=== PATIENT | male | born 1955 | race Caucasian/White ===

== ENCOUNTER 2023-02-12 09:48 | Outpatient (CLI) | payer MEDICARE, SELFPAY ==
--- NOTE | ~2023-02-12 | XR_ITS ---
Right Knee Technique: AP, lateral, and oblique views were obtained. Clinical History: Pain Findings: No fracture or dislocation is seen. Osseous alignment is anatomic. Joint spaces are preserv ed without degenerative or erosive change. Soft tissues are unremarkable. No joint effusion is seen. Impression: Unremarkable right knee radiographs. Reviewed, dictated and finalized at location . Impression: Unremarkable right knee radiographs.
== END 2023-02-12 09:49 | disposition home or self-care (01) ==
PROVIDERS: PCP Family Medicine; Visit Provider Physician Assistant
DX: M25.561 Pain in right knee (principal)
CPT/HCPCS: 73562

== ENCOUNTER 2023-05-15 09:48 | Emergency (ER) | payer MEDICARE, SELFPAY ==
[2023-05-15 09:57] VITALS: BP 157/95; PULSE 104; RESP 16; TEMP 36.4; O2SAT 100
[2023-05-15 10:01] VITALS: BP 157/95; PULSE 104; RESP 16; TEMP 36.4; O2SAT 100
--- NOTE | 2023-05-15 10:05 | ED.EXTPRO ---
HPI - Extremity Problem General Chief complaint: Extremity Problem,Nontraumatic Stated complaint: Knee Swollen Time Seen by Provider: 05/15/23 10:05 Source: patient, RN notes reviewed and old records reviewed Mode of arrival: ambulatory Limitations: no limitations History of Present Illness HPI Narrative: 67-year-old presents to the [facility] with complaints knee pain and swelling. Patient has had intermittent knee pain and swelling since at least January of this year. Has seen primary care provider. Was referred to Orthopedics, states he has an appointment at the end of May. Today comes in asking if there was anything else he can do for the swollen knee beside following up with orthopedist. Has been taking Tylenol, Has been using Biofreeze, as well as icing the area. Patient denies any trauma. No bruising, cellulitic changes noted. Last x-ray January 2023 with no acute findings Related Data Allergies Allergy/AdvReac Type Severity Reaction Status Date / Time No Known Allergies Allergy Verified 05/15/23 10:00 Review of Systems Review of Systems: All systems reviewed & are unremarkable except as noted in HPI and below Constitutional: Constitutional: Reports no additional constitutional complaints Eyes: Eyes: Reports no additional eye complaints ENT: Reports system reviewed and no additional complaints, except as documented Cardiovascular: Cardiovascular: Reports no additional cardiovascular complaints, Denies chest pain and Denies dyspnea Respiratory: Respiratory: Reports no additional respiratory complaints, Denies chest congestion, Denies cough and Denies dyspnea Gastrointestinal: Gastrointestinal: Reports no additional gastrointestinal complaints, Denies abdominal pain, Denies nausea and Denies vomiting Musculoskeletal: Musculoskeletal: Reports as per HPI, Reports arthralgias and Reports joint swelling Integumentary/Breasts: Skin/Breast: Reports system reviewed and no additional complaints, except as docu Neurologic: Reports system reviewed and no additional complaints, except as documented Psychiatric: Psychiatric: Reports no additional psychiatric complaints Allergic/Immunologic: Allergic/Immunologic: Reports no additional allergic/immunologic complaints PMFSH Past Medical History Medical History Benign essential HTN Establishing care with new doctor, encounter for Lipid screening Mixed hyperlipidemia Pre-employment examination Screening for measles White coat syndrome with diagnosis of hypertension Family History Family History Mother Transfusion reaction Father , natural causes at 95 No problems noted. Other Heart disease Hypertension Social History Social History Social History: Smoking status: Never smoker Second hand tobacco smoke exposure: No Alcohol intake: never Substance use: never Substance use type: does not use Lack of Transportation: No Lack of Food: Never True Current Housing: I Have Housing Concerned About Future Housing: No Difficulty Paying Gas/Electric Bills: No Difficulty Paying for Meds: No Currently Unemployed: No Education: Decline to Answer Difficulty w/ Childcare or Family Care: No Living arrangements: with family Occupation/Education: occupation Gender identity (if verbalized by the patient): Male Sexual Orientation (if Verbalized by the Patient): Straight or Heterosexual Comments At the time of my signature, I reviewed and agree with the nursing past medical, surgical, social, and family history. There is no relevant family history pertinent to the patient complaint. Exam Const: General: cooperative, healthy appearing, comfortable, no acute distress, well developed, alert and well nourished Nutritional Appearance: well nourished a
== END 2023-05-15 10:27 | disposition home or self-care (01) ==
PROVIDERS: Emergency Provider Nurse Practitioner; PCP Family Medicine
DX: M25.561 Pain in right knee (principal); M79.89 Other specified soft tissue disorders; I10 Essential (primary) hypertension; E78.2 Mixed hyperlipidemia
CPT/HCPCS: 99212; G0463

== ENCOUNTER 2023-06-30 01:24 | Day surgery (SDC) | payer MEDICARE, SELFPAY ==
[2023-06-17 10:46] VITALS: BMI 28.5
--- NOTE | 2023-06-28 09:37 | SUR.PREOP ---
Patient called regarding upcoming procedure. Message left on pt's voicemail regarding preop instructions, appointment times, and procedure prep.
[2023-06-30 06:14] VITALS: BP 170/95; PULSE 82; RESP 18; TEMP 36.2; O2SAT 100; BMI 38.0
[2023-06-30] MEDS: LACTATED RINGERS 1,000 ML 150 ML IV CONT (06:35)
--- NOTE | 2023-06-30 07:23 | PM.HPGS ---
History of Present Illness History of Present Illness Consent: Risks, benefits, and alternatives have been discussed and questions answered. Patient agrees to proceed with procedure. Chief complaint: Neoplasm Screening Narrative: Puneet Mendez is a 67 year old male here for first screening colonoscopy Review of Systems Constitutional: Constitutional: Denies headache(s) and Denies weakness Eyes: Eyes: Denies blurry vision ENT: Reports Normal hearing present, Denies headache(s) and Denies neck pain Cardiovascular: Cardiovascular: Denies chest pain and Denies dyspnea Respiratory: Respiratory: Denies dyspnea Gastrointestinal: Gastrointestinal: Reports no additional gastrointestinal complaints Genitourinary: Genitourinary: Denies dysuria Musculoskeletal: Musculoskeletal: Denies neck pain Integumentary/Breasts: Skin/Breast: Denies dry skin Neurologic: Reports Normal hearing present, Denies headache(s) and Denies weakness Psychiatric: Psychiatric: Denies anxiety Endocrine: Endocrine: Denies change in body appearance Hematologic/Lymphatic: Hematologic/Lymphatic: Denies easy bleeding Allergic/Immunologic: Allergic/Immunologic: Denies urticaria [facility] Past Medical History Medical History (Updated 06/14/23 @ 14:06 by JULIÁN Cox) Benign essential HTN Degenerative joint disease of knee Establishing care with new doctor, encounter for Left knee pain Lipid screening Mixed hyperlipidemia Pre-employment examination Right knee pain Screening for measles White coat syndrome with diagnosis of hypertension Family History Family History Mother Transfusion reaction Father , natural causes at 95 No problems noted. Other Heart disease Hypertension Social History Social History Social History: Smoking status: Never smoker Second hand tobacco smoke exposure: No Alcohol intake: current Alcohol use details: occasional Substance use: never Substance use type: does not use Lack of Transportation: No Lack of Food: Never True Current Housing: I Have Housing Concerned About Future Housing: No Difficulty Paying Gas/Electric Bills: No Difficulty Paying for Meds: No Currently Unemployed: No Education: Decline to Answer Difficulty w/ Childcare or Family Care: No Living arrangements: with family Occupation/Education: occupation Gender identity (if verbalized by the patient): Male Sexual Orientation (if Verbalized by the Patient): Straight or Heterosexual Spiritual care concerns: No Meds Home Medications and Allergies Home Medications Medication Instructions Recorded Confirmed Type metoprolol tartrate 100 1 tablet PO DAILY #30 tabs 02/15/23 06/17/23 Rx mg-hydrochlorothiazide 25 mg tablet atorvastatin 20 mg tablet 20 mg PO QHS #30 tabs 06/07/23 06/17/23 Rx lisinopril 20 mg tablet See Rx Instructions .Route 06/15/23 06/17/23 Rx .COMPLEX #90 tabs Allergies Allergy/AdvReac Type Severity Reaction Status Date / Time No Known Allergies Allergy Verified 06/17/23 10:54 Vital Signs Vital Signs - 24 hr 06/30/23 06:14 Temperature 97.2 F L Pulse Rate 82 Respiratory Rate 18 Blood Pressure 170/95 H Pulse Oximetry 100 Oxygen Delivery Room Air Exam Const: General: comfortable and no acute distress HENMT: Face/Nose/Sinus: Normal nares present Eyes: General: appearance normal, both eyes and all related structures Neck: Neck: no JVD Resp: Auscultation: clear to auscultation bilaterally Cardio: Rate: regular rate Rhythm: regular rhythm GI: Inspection: non-distended GI Palp: Yes Soft to palpation Skin: General skin exam: normal color Neuro: General: gait normal Speech: normal speech Extrem: General: normal to inspection Psych: Mental Status: mental status grossly normal Assessment and Plan
--- NOTE | 2023-06-30 07:27 | WPDANESEPPF ---
Anes - Initial Pre Proc Eval Procedure: Operation Date: 06/30/23 07:30 Proposed Procedures p Screening Colonoscopy - Luis Miguel Olmedo MD Date/Time: 06/30/23 07:27 Surgeon: Luis Miguel Olmedo MD Pre Op Diagnosis: Neoplasm Screening Patient Data Age: 67 Gender: M Height: 1.83 m Weight: 127.2 kg Last Vital Signs Temp 97.2 F L 06/30/23 06:14 Pulse 82 06/30/23 06:14 Resp 18 06/30/23 06:14 BP 170/95 H 06/30/23 06:14 Pulse Ox 100 06/30/23 06:14 O2 Del Method Room Air 06/30/23 06:14 Allergies Allergy/AdvReac Type Severity Reaction Status Date / Time No Known Allergies Allergy Verified 06/17/23 10:54 Home Medications Medication Instructions Recorded Confirmed Type metoprolol tartrate 100 1 tablet PO DAILY #30 tabs 02/15/23 06/17/23 Rx mg-hydrochlorothiazide 25 mg tablet atorvastatin 20 mg tablet 20 mg PO QHS #30 tabs 06/07/23 06/17/23 Rx lisinopril 20 mg tablet See Rx Instructions .Route 06/15/23 06/17/23 Rx .COMPLEX #90 tabs Patient hx anesthesia problems: none Family hx anesthesia problems: none Results Review: All pre-operative results and documents have been reviewed as part of the pre-operative evaluation. [facility] Past Medical History Medical History (Updated 06/14/23 @ 14:06 by JULIÁN Cox) Benign essential HTN Degenerative joint disease of knee Establishing care with new doctor, encounter for Left knee pain Lipid screening Mixed hyperlipidemia Pre-employment examination Right knee pain Screening for measles White coat syndrome with diagnosis of hypertension Family History Family History Mother Transfusion reaction Father , natural causes at 95 No problems noted. Other Heart disease Hypertension Social History Social History Social History: Smoking status: Never smoker Second hand tobacco smoke exposure: No Alcohol intake: current Alcohol use details: occasional Substance use: never Substance use type: does not use Lack of Transportation: No Lack of Food: Never True Current Housing: I Have Housing Concerned About Future Housing: No Difficulty Paying Gas/Electric Bills: No Difficulty Paying for Meds: No Currently Unemployed: No Education: Decline to Answer Difficulty w/ Childcare or Family Care: No Living arrangements: with family Occupation/Education: occupation Gender identity (if verbalized by the patient): Male Sexual Orientation (if Verbalized by the Patient): Straight or Heterosexual Spiritual care concerns: No Anes - Eval Final PreProcedure Day of Procedure 06/30/23 07:27 Patient weight: obese Heart: regular rate and rhythm Lungs: clear to auscultation Airway: Mallampati scale class II Neurological: alert and oriented Last oral intake: >/= 8 hours ASA classification: III Emergent: no Anesthetic plan: proceed Anesthesia type and monitoring: general GIVS and standard monitoring Results Review: All pre-operative results and documents have been reviewed as part of the pre-operative evaluation. Informed Consent: The patient's anesthetic plan and its attendant risks and benefits were discussed with the patient/family/POA. Questions were solicited and answers provided to the satisfaction of the patient/family/POA.
[2023-06-30 07:50] VITALS: BP 119/72; PULSE 64; RESP 19; O2SAT 95
[2023-06-30 08:00] VITALS: BP 125/82; PULSE 76; RESP 18; O2SAT 100
[2023-06-30 08:10] VITALS: BP 147/88; PULSE 68; RESP 20; O2SAT 100
== END 2023-06-30 08:26 | disposition home or self-care (01) ==
PROVIDERS: PCP Family Medicine; Visit Provider Internal Medicine Gastroenterology
PROC: 0DJD8ZZ Inspection of Lower Intestinal Tract, Via Natural or Artificial Opening Endoscopic (ICD-10-PCS; CPT 45378; principal; 2023-06-30 07:30)
DX: Z12.11 Encounter for screening for malignant neoplasm of colon (principal); K63.5 Polyp of colon; K57.30 Diverticulosis of large intestine without perforation or abscess without bleeding; I10 Essential (primary) hypertension; E78.2 Mixed hyperlipidemia; E66.9 Obesity, unspecified; Z68.38 Body mass index [BMI] 38.0-38.9, adult
CPT/HCPCS: 45385; 88305; J2704; J7120

== ENCOUNTER 2023-09-30 09:58 | Outpatient (CLI) | payer MEDICARE, SELFPAY ==
[2023-09-30 11:35] LABS: Basophils Percent Auto 0.6 % (0.2-1.2); Eosinophils Percent Auto 0.6 % (0-4.4); Hemoglobin 13.1 g/dL (14.0-18.0); Immature Granulocyte Absolute 0.02 K/mm3 (0.00-0.031); Immature Granulocyte Percent A 0.4 % (0-0.5); Lymphocytes Absolute Auto 2.41 K/mm3 (0.9-3.2); Lymphocytes Percent Auto 48.7 % (18.3-44.2); Mean Corpuscular HGB Conc 31.2 g/dl (32-36); Mean Corpuscular Hemoglobin 27.8 pg (26-34); Mean Platelet Volume 10.1 fl (7.4-10.4); Monocytes Absolute Auto 0.7 K/mm3 (0.1-0.6); Monocytes Percent Auto 14.1 % (2.6-8.5); Neutrophils Absolute Auto 1.8 K/mm3 (1.3-6.7); Neutrophils Percent Auto 35.6 % (45.5-73.1); Platelet Count Result 184 k/mm3 (150-375); Red Blood Count 4.72 M/mm3 (4.6-6.20); Red Cell Distribution Width 13.6 % (11.5-14.5)
[2023-09-30 11:50] LABS: Prothrombin Time 13.4 Seconds (11.1-14.7)
[2023-09-30 11:51] LABS: Partial Thromboplastin Time 32.6 SECONDS (22.3-36.8)
[2023-09-30 11:52] LABS: Appearance Urine Clear (Clear); Bacteria Urine None Seen /hpf; Bilirubin Urine Negative (Negative); Blood Urine Negative (Negative); Color Urine Yellow (Yellow); Glucose Urine UA Negative (Negative); Hyaline Casts Urine Present /lpf; Ketones Urine Negative (Negative); Leukocyte Esterase Ur Negative LEU/UL (Negative); Need Manual Microscopic Reviewed; Nitrate Urine Negative (Negative); Protein Urine 1+ mg/dL (Negative); RBC Urine 0-2 /hpf (0-2); Specific Grav Ur 1.027 (1.001-1.035); Squamous Epithelial Cell Urine None seen /hpf (Few); Urobilinogen Urine 0.2 mg/dL (<2.0); WBC Urine 0-5 /hpf
[2023-09-30 11:55] LABS: Add Urine Microscopic? YES
[2023-09-30 12:34] LABS: Albumin Level 4.2 g/dL (3.5-5.1); Anion Gap 11 mmol/L (8-16); Blood Urea Nitrogen 35 mg/dL (9-20); Calcium 9.1 mg/dL (8.4-10.2); Carbon Dioxide 25 mmol/L (22-30); Chloride 102 mmol/L (98-107); Estimated Glomerular Filt Rate 47; Glucose 100 mg/dL (65-110); Potassium 3.4 mmol/L (3.4-5.0); Sodium 138 mmol/L (137-145)
[2023-09-30 12:53] LABS: MRSA (PCR) NOT DETECTED (NOT DETECTE)
[2023-09-30 13:09] LABS: Urine Cotinine NEGATIVE
[2023-09-30 13:21] LABS: Hemoglobin A1C 5.8 % (<5.7)
== END 2023-09-30 09:59 | disposition home or self-care (01) ==
LOC: ANHSURGERY 10:02
PROVIDERS: PCP Family Medicine; Visit Provider Orthopaedic Surgery
DX: M17.11 Unilateral primary osteoarthritis, right knee (principal); Z01.818 Encounter for other preprocedural examination
CPT/HCPCS: 80048; 80307; 81001; 82040; 83036; 85025; 85610; 85730; 87641

== ENCOUNTER 2023-10-19 00:58 | Day surgery (SDC) | payer MEDICARE, SELFPAY ==
[2023-09-30 10:12] VITALS: BMI 36.0
--- NOTE | 2023-09-30 10:30 | PC.NURSE ---
Report to the Outpatient Waiting Room, entrance under the green pavilion located off [facility], at time __0600 on date _10/19/23 . Planned Procedure Time: __729 . Time changes happen often and if your time is changed the preop area will call you the afternoon before. - You and your visitor will be asked to self-screen and do not enter if you have any COVID symptoms. - A mask is optional within the hospital at this time. Patients may have clear liquids (water, carbonated beverages, clear teas, apple juice) until 3 hours prior to surgery( 4:30 AM) with a maximum of 20 ounces. - No food from midnight until time of surgery - Infants may have breast milk until 4 hours before surgery, infant formula 6 hours prior to surgery. - Children will be allowed to drink immediately following surgery. If applicable, please bring a bottle or sippy cup to assist with drinking. Juice, water, soda, and popsicles are readily available. For infants on formula, please bring formula the day of surgery. Pacifiers are allowed. Take the following medications with a SIP of water the morning of surgery: __METOPROLOL DO NOT STOP ANY OF YOUR OTHER PRESCRIPTION MEDICATIONS PRIOR TO SURGERY ?EXCEPT THE FOLLOWING Medications to discontinue per physician ____NONE MAY TAKE TYLENOL IF NEEDED FOR PAIN Please no make-up, nail south african, hairspray, perfume, deodorant, or body powder the day of surgery. No jewelry (including any body piercings) or valuables the day of surgery, leave them at home. Please take a shower or bath the night before, or the morning of, surgery with an antibacterial soap. Wear comfortable, loose fitting clothing. Children are encouraged to wear pajamas. - Jewelry must be removed prior to entering the operating room. Rings and piercings that are not removed may be cut off. - The hospital will not accept responsibility for valuables. - Please leave all valuables, including medications, at home the day of surgery. If you are going home after surgery, a licensed dumpster driver must drive you home. - NO public transportation without another adult if you receive anesthesia. - We recommend that an adult stay with you for 24 hours following discharge. - We also recommend that you do not drive, make important decision, drink alcoholic beverages, or take any drugs that were not prescribed by your health care provider for at least 24 hours after your discharge time Follow any additional instructions given to you from your surgeon. If you or anyone in your household have experienced Covid symptoms in the past week, please notify your surgeon or the nurse liaison at the phone number below for possible testing. VERBAL AND WRITTEN instructions given to __PATIENT and asked if any additional questions and then verbalized understanding. Patient advised to call surgeon office or pre surgery nurse liaison [phone] if any additional questions.
[2023-09-30 10:48] VITALS: BP 128/79; PULSE 83; RESP 18; TEMP 36.6; O2SAT 98
--- NOTE | 2023-10-18 13:59 | WPDANESEPPF ---
Anes - Initial Pre Proc Eval Procedure: Operation Date: 10/19/23 07:30 Proposed Procedures p Right Total Knee Arthroplasty - Pérez Frost MD Date/Time: 10/18/23 13:59 Surgeon: Pérez Frost MD Pre Op Diagnosis: right knee oa Patient Data Age: 68 Gender: M Height: 1.88 m Weight: 127.3 kg Last Vital Signs Temp 36.6 C 09/30/23 10:48 Pulse 83 09/30/23 10:48 Resp 18 09/30/23 10:48 BP 128/79 09/30/23 10:48 Pulse Ox 98 09/30/23 10:48 O2 Del Method Room Air 09/30/23 10:48 Allergies Allergy/AdvReac Type Severity Reaction Status Date / Time No Known Allergies Allergy Verified 10/08/23 09:48 Home Medications Medication Instructions Recorded Confirmed Type atorvastatin 20 mg tablet 20 mg PO QHS #30 tabs 08/05/23 10/08/23 Rx metoprolol tartrate 100 See Rx Instructions .Route 08/30/23 10/08/23 Rx mg-hydrochlorothiazide 25 mg tablet .COMPLEX #90 tabs lisinopril 20 mg tablet See Rx Instructions .Route 09/09/23 10/08/23 Rx .COMPLEX #90 tabs acetaminophen 650 mg 1,300 mg PO Q8H PRN Pain 09/30/23 10/08/23 History tablet,extended release (Tylenol 8 Hour) chlorhexidine gluconate 4 % 1 applic topical ONCE #237 mL 10/05/23 10/08/23 Rx topical liquid (Hibiclens) Patient hx anesthesia problems: none Family hx anesthesia problems: none Results Review: All pre-operative results and documents have been reviewed as part of the pre-operative evaluation. [facility] Past Medical History Medical History Benign essential HTN Degenerative joint disease of knee Establishing care with new doctor, encounter for Fatigue Left knee pain Lipid screening Mixed hyperlipidemia Pre-employment examination Right knee pain Screening for measles White coat syndrome with diagnosis of hypertension Family History Family History Mother Transfusion reaction Father , natural causes at 95 No problems noted. Other Heart disease Hypertension Social History Social History Social History: Smoking status: Never smoker Second hand tobacco smoke exposure: No Additional smoking assessment comments: DENIES ANY FORM OF TOBACCO USE Alcohol intake: current Drinks per week: 2 Alcohol use details: occasional Substance use: never Substance use type: does not use Lack of Transportation: No Lack of Food: Never True Current Housing: I Have Housing Concerned About Future Housing: No Difficulty Paying Gas/Electric Bills: No Difficulty Paying for Meds: No Currently Unemployed: No Education: Decline to Answer Difficulty w/ Childcare or Family Care: No Living arrangements: with family Occupation/Education: occupation Gender identity (if verbalized by the patient): Male Sexual Orientation (if Verbalized by the Patient): Straight or Heterosexual Spiritual care concerns: No Anes - Eval Final PreProcedure Day of Procedure 10/18/23 13:59 Patient weight: obese Heart: regular rate and rhythm Lungs: clear to auscultation Airway: Mallampati scale class II Neurological: alert and oriented Last oral intake: >/= 8 hours ASA classification: III Emergent: no Anesthetic plan: proceed Anesthesia type and monitoring: general LMA and standard monitoring Results Review: All pre-operative results and documents have been reviewed as part of the pre-operative evaluation. Informed Consent: The patient's anesthetic plan and its attendant risks and benefits were discussed with the patient/family/POA. Questions were solicited and answers provided to the satisfaction of the patient/family/POA.
[2023-10-19] VITALS (16 sets, daily range): BP systolic 113–135; BP diastolic 63–85; PULSE 58–92; RESP 12–21; TEMP 28.8–36.6; O2SAT 94–100
--- NOTE | ~2023-10-19 | XR_ITS ---
EXAMINATION: [id number] DATE: 10/19/2023 10:40 INDICATION: Postoperative evaluation following right total knee arthroplasty. TECHNIQUE: Anteroposterior and lateral views of the right knee were obtained. COMPARISON: None. FINDINGS: 8 total knee arthroplasty with patellar resurfacing appears well seated and in near anatomic alignmen t. No fractures identified. Anterior skin rina and expected postoperative subcutaneous and intra- articular gas. IMPRESSION: 1. Right total knee arthroplasty, negative for postoperative purposes. Reviewed, dictated and finalized at location A. APIN FISHER
[2023-10-19] MEDS: ACETAMINOPHEN 500 MG TABLET 1000 MG PO (07:00)
[2023-10-19] MEDS: TRANEXAMIC ACID 1,000MG/ISO100 1,000 MG/100 ML BAG 200 MG IVPB (07:00)
[2023-10-19] MEDS: LACTATED RINGERS 1,000 ML 30 ML IV CONT ×2 (07:00→10:15)
--- NOTE | 2023-10-19 07:15 | WPDHPUPDATE1 ---
History and Physical Update Update Date/Time: 10/19/23 07:15 History and Physical has been reviewed, including an updated exam of the patient. There are NO changes in the patient's condition. Risks, benefits, and alternatives have been discussed and questions answered. Patient agrees to proceed with procedure.
[2023-10-19] MEDS: ceFAZolin 3 GM/D5W 100 ML 100 ML IVPB (07:30)
--- NOTE | 2023-10-19 08:18 | WPDANESPNB ---
Anes - Peripheral Nerve Block Date/Time: 10/19/23 08:18 I have discussed with the patient/family/POA the placement of a peripheral nerve block for post-operative pain management, including associated risks, benefits, complications, and side effects. Alternative methods of post-operative analgesia were detailed. Questions were solicited and answers provided to the satisfaction of the patient/family/POA. Time-Out: A pre-procedural Time-Out was completed immediately before starting the procedure and confirmed: Patient Identification, Site, Procedure, Patient Position and the Availability of Requisite Equipment. Clinical Indications: Acute post-operative pain management requested by the operative surgeon. Nerve Block Insertion Note Anes-nerve block: adductor canal right Patient position: supine Skin prep: chlorhexidine Needle: 22 gauge, stimulating, insulated echogenic needle. Needle length: 80 mm Technique: ultrasound Injectate: bupivacaine 0.5% with epi 5 mcg/ml (30cc - no epi) Observations: tolerated well Complications: none Procedure start time:: 717 Procedure end time:: 722
[2023-10-19] MEDS: SODIUM CHLORIDE 0.9% IV 37.7 ML, MORPHINE SULFATE INJ (*CRX) 2 MG, ROPivacaine HCL 1% 2... INFILTRATE (09:09)
[2023-10-19] MEDS: TRANEXAMIC ACID 1,000 MG/10 ML AMPUL 1000 MG IV PUSH (09:24)
--- NOTE | 2023-10-19 10:11 | W.PM.PROC2 ---
Procedure Note - Detailed Date of Procedure 10/19/23 Pre-op Diagnosis right knee oa Post-op Diagnosis Same Procedure Performed R TKA Surgeon Pérez Frost MD Anesthesia General Description of Procedure THE RIGHT KNEE WAS PREPPED AND DRAPED IN THE STERILE FASHION. THERE WAS A 20 DEGREE FLEXION CONTRACTURE. A MIDLINE SKIN INCISION WAS MADE. A MEDIAL PARAPATELLAR ARTHROTOMY WAS MADE. THE PATELLA WAS EVERTED. THERE WAS TRICOMPARTMENT DJD. AN INTRAMEDULLARY PEYTON WAS PLACED IN THE FEMUR. A DISTAL FEMORAL CUT WAS MADE IN 5 DEGREES OF VALGUS REMOVING APPROXIMATELY 11 MM OF BONE FROM THE DISTAL FEMUR. THE FEMUR WAS SIZED TO 72.5. A 72.5 FEMORAL CUTTING BLOCK WAS PLACED IN 3 DEGREES OF EXTERNAL ROTATION AND IN ALIGNMENT WITH WARD'S LINE AND THE TRANSEPICONDYLAR AXIS. ANTERIOR POSTERIOR AND CHAMFER CUTS WERE MADE. THE CUTS WERE EXCELLENT. NEXT AN INTRAMEDULLARY CUTTING GUIDE WAS PLACED IN THE TIBIA. A TRANS TIBIAL CUT WAS MADE ALONG THE LONG AXIS OF THE TIBIA. APPROXIMATELY 10 MM OF BONE WAS REMOVED FROM THE HIGH SIDE OF THE TIBIA. THE TIBIA WAS THEN PLANED TO A SMOOTH SURFACE. POSTERIOR FEMORAL OSTEOPHYTES WERE REMOVED FROM THE FEMORAL CONDYLES. A 79 TIBIAL TRIAL WAS PLACED IN ALIGNMENT WITH THE 1/3 MEDIAL ASPECT OF THE TIBIAL TUBERCLE. THEN A 72.5 FEMORAL TRIAL COMPONENT WAS PLACED. BOTH HAD EXCELLENT FITS. EVENTUALLY A 10 MM CR POLYETHYLENE TRIAL COMPONENT WAS PLACED. THE KNEE WAS TAKEN THROUGH A RANGE OF MOTION. THE KNEE CAME OUT TO FULL EXTENSION. THERE WAS NO ABNORMAL TILT TO THE PATELLA. THERE WAS GOOD A/P AND VARUS/VALGUS STABILITY. THERE WAS NO EXCESSIVE ROLL BACK WITH FLEXION. THE TRIAL COMPONENTS WERE REMOVED. THEN A 72.5 FEMORAL COMPONENT AND 79 TIBIAL COMPONENT WITH A 10 CR POLYETHYLENE COMPONENT WERE CEMENTED INTO PLACE. ONCE THE CEMENT WAS HARD THE KNEE WAS TAKEN THROUGH A ROM AGAIN AND FOUND TO BE STABLE WITH NO PATELLA TILT NO EXCESSIVE ROLL BACK WITH FLEXION AND GOOD STABILITY WITH COMPLETE AND FULL EXTENSION. THE KNEE WAS IRRIGATED WITH STERILE BETADINE AND WATER FOR ABOUT 3 MINUTES. THE BLEEDERS WERE CAUTERIZED. THE ARTHROTOMY WAS REPAIRED WITH NUMBER 1 VICRYL. THE SUB CUTANEOUS LAYER WITH 2-0 VICRYL AND THE SKIN WITH SEGUNDO. THE WOUND WAS WASHED AND A STERILE DRESSING WAS APPLIED. PATIENT WAS EXTUBATED. Estimated Blood Loss 200 Pathology None sent Complications No immediate complications Condition Stable Disposition PACU
[2023-10-19] MEDS: polyethylene glycoL 3350 17 GM POWD.PACK PO (12:15)
--- NOTE | 2023-10-19 13:26 | PM.EVENT ---
Event Note Event Note Event Note: Called by RN as the patient arrived to the floor postoperatively s/p TKA with a temperature of 28.8. This was rechecked by nursing staff with an different machine, rectally, orally and axillary. Readings as follows: 28.8, 34.1, 34.8, 34.6, 35.3. Contacted Dr. Frost to update on temperature concerns given postoperative status. Contacted the PACU and PACU airborne weapons technical manager, Colleen. Per Colleen, patient left PACU with a temp of 36.6. Reports he refused a bear hugger immediately postoperatively. Temp upon arrival to the hospital today was 36.4. Colleen notified Dr. Amanda with anesthesiology, no new orders. I have evaluated the patient at the bedside. Patient alert and oriented. Independent temperature evaluation, orally at 35.2 and temporally at 35.9. Applied warming blankets around patient's head. Several blankets on trunk. RN to recheck. Plan to initiate protocol for bear hugger on floor with RN monitoring vitals per protocol x1 hour if no improvement in temperature. Dr. Frost aware.
--- NOTE | 2023-10-19 13:32 | ADMGEN ---
This patient, Puneet Mendez, was admitted to 3 [facility] Surg Room 309-01. Patient/family oriented to hospital policies and general routines including ID bracelet, bed and alarms, visiting hours, pain management, procedures, bathroom and other care routines, personal items, smoking policy, room service/diet, and visiting hours. Information on how to activate the Rapid Response Team has been discussed. Patient/Family are encouraged to report perceived risks to care and to ask questions if they do not understand what they are told or what they should do.
[2023-10-19] MEDS: ceFAZolin 2 GM/D5W 50 ML 2 GM/50 ML BAG IVPB (16:30)
[2023-10-19] MEDS: SENNA/DOCUSATE SODIUM TABLET 2 TAB PO ×2 (16:32→17:15)
[2023-10-19] MEDS: FAMOTIDINE 20 MG TABLET PO ×2 (16:32→20:10)
[2023-10-19] MEDS: ASPIRIN 325 MG ENTERIC TABLET PO ×2 (16:32→20:10)
[2023-10-19] MEDS: lisinopriL 20 MG TABLET BY MOUTH (16:32)
[2023-10-19] MEDS: KETOROLAC 15 MG/ML VIAL (*BKC) IV PUSH (17:14)
[2023-10-19] MEDS: ATORVASTATIN 20 MG TABLET PO (20:10)
[2023-10-19] MEDS: oxyCODONE/ACETAMINOPHEN (*CRX) 5-325 MG TABLET 1 TABLET PO (21:02)
[2023-10-20] MEDS: ceFAZolin 2 GM/D5W 50 ML 2 GM/50 ML BAG IVPB ×2 (00:47→08:43)
[2023-10-20] MEDS: KETOROLAC 15 MG/ML VIAL (*BKC) IV PUSH ×3 (00:47→11:22)
[2023-10-20 01:50] VITALS: BP 120/53; PULSE 84; RESP 20; TEMP 37.1; O2SAT 97
[2023-10-20] MEDS: oxyCODONE/ACETAMINOPHEN (*CRX) 5-325 MG TABLET 1 TABLET PO ×2 (02:39→06:30)
[2023-10-20 06:15] VITALS: BP 129/65; PULSE 88; RESP 16; TEMP 36.8; O2SAT 98
[2023-10-20 06:34] LABS: Basophils Percent Auto 0.1 % (0.2-1.2); Eosinophils Percent Auto 0.2 % (0-4.4); Hematocrit 34.1 % (42.0-52.0); Immature Granulocyte Absolute 0.04 K/mm3 (0.00-0.031); Immature Granulocyte Percent A 0.4 % (0-0.5); Lymphocytes Absolute Auto 2.24 K/mm3 (0.9-3.2); Lymphocytes Percent Auto 21.5 % (18.3-44.2); Mean Corpuscular HGB Conc 32.3 g/dl (32-36); Mean Corpuscular Hemoglobin 28.6 pg (26-34); Mean Corpuscular Volume 88.8 fl (80-100); Mean Platelet Volume 10.7 fl (7.4-10.4); Monocytes Absolute Auto 1.1 K/mm3 (0.1-0.6); Monocytes Percent Auto 10.6 % (2.6-8.5); Neutrophils Percent Auto 67.2 % (45.5-73.1); Platelet Count Result 202 k/mm3 (150-375); Red Blood Count 3.84 M/mm3 (4.6-6.20); Red Cell Distribution Width 13.8 % (11.5-14.5); White Blood Count 10.4 K/mm3 (4.5-10.0)
[2023-10-20 06:47] LABS: Anion Gap 5 mmol/L (8-16); Blood Urea Nitrogen 21 mg/dL (9-20); Carbon Dioxide 27 mmol/L (22-30); Chloride 106 mmol/L (98-107); Estimated CRCL calculation 82 ml/min; Estimated Glomerular Filt Rate > 60; Glucose 110 mg/dL (65-110); Potassium 3.6 mmol/L (3.4-5.0); Sodium 138 mmol/L (137-145)
[2023-10-20 08:00] VITALS: BP 105/49; PULSE 86; RESP 16; TEMP 36; O2SAT 97
[2023-10-20] MEDS: lisinopriL 20 MG TABLET BY MOUTH (08:46)
[2023-10-20] MEDS: ASPIRIN 325 MG ENTERIC TABLET PO (08:46)
[2023-10-20] MEDS: SENNA/DOCUSATE SODIUM TABLET 2 TAB PO (08:46)
--- NOTE | 2023-10-20 09:02 | P.PNAN_ITS ---
Anes - Prog Note Post-Op Date/Time: 10/20/23 09:02 Vital Signs: Last Vital Signs Temp 36.0 C L 10/20/23 08:00 Pulse 86 10/20/23 08:00 Resp 16 10/20/23 08:00 BP 105/49 L 10/20/23 08:00 Pulse Ox 97 10/20/23 08:00 O2 Del Method Room Air 10/19/23 20:00 O2 Flow Rate 6 10/19/23 10:45 Pain Score (VAS): 3 I/O: Intake & Output 10/19/23 10/20/23 10/20/23 23:59 07:59 15:59 Intake Total 492 200 Output Total 300 225 Balance 492 -100 -225 Laboratory Tests 10/20/23 06:10 10/20/23 06:10 10/20/23 06:10 WBC 10.4 H RBC 3.84 L Hgb 11.0 L Hct 34.1 L MCV 88.8 MCH 28.6 MCHC 32.3 RDW 13.8 Plt Count 202 MPV 10.7 H Immature Gran % (Auto) 0.4 Neut % (Auto) 67.2 Lymph % (Auto) 21.5 [place] % (Auto) 10.6 H Eos % (Auto) 0.2 Baso % (Auto) 0.1 L Lymph # (Auto) 2.24 [place] # (Auto) 1.1 H Eos # (Auto) 0.0 Baso # (Auto) 0.0 Abs Immat Gran (auto) 0.04 H Absolute Neuts (auto) 7.0 H Absolute Nucleated RBC 0.0 Nucleated RBC % 0.0 Sodium 138 Potassium 3.6 Chloride 106 Carbon Dioxide 27 Anion Gap 5 L BUN 21 H D Creatinine 1.10 Estim Creat Clear Calc 82 Estimated GFR > 60 Glucose 110 Calcium 9.0 Patient Feedback: Patient satisfied with anesthetic care. pt working with therapy at bedside, doing great.
[2023-10-20] MEDS: FAMOTIDINE 20 MG TABLET PO (10:48)
--- NOTE | 2023-10-20 10:52 | PM.PNORT ---
Progress Note: A&P Assessment and Plan (1) Degenerative joint disease of knee: Qualifiers: Osteoarthritis type: primary Laterality: bilateral Qualified Code(s): M17.0 - Bilateral primary osteoarthritis of knee Code(s): M17.9 - Osteoarthritis of knee, unspecified Status: Acute Plan POD 1 DOING WELL TEMPERATURE IS IMPROVING. HE WILL NEED MORE PT THIS AFTERNOON. HE WILL BE DISCHARGED IF HE PASSES PT. Subjective Subjective Date/Time Seen: 10/20/23 10:52 Interval history: POD 1 DOING WELL. GOOD PROGRESS WITH PT. 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 Objective Data Vital Signs Vital Signs: Vital Signs - 24 hr 10/19/23 10:55 10/19/23 11:10 10/19/23 11:25 Temperature Pulse Rate 63 61 Respiratory Rate 12 12 Blood Pressure 119/74 119/77 Pulse Oximetry 96 95 Oxygen Delivery Room Air Room Air Room Air 10/19/23 11:36 10/19/23 11:37 10/19/23 11:52 Temperature 28.8 C L 34.8 C L Pulse Rate 68 69 64 Respiratory Rate 14 14 14 Blood Pressure 135/73 123/71 115/63 Pulse Oximetry 95 97 98 Oxygen Delivery Room Air 10/19/23 12:00 10/19/23 11:37 10/19/23 12:51 Temperature 34.6 C L 34.1 C L 35.3 C L Pulse Rate Respiratory Rate Blood Pressure Pulse Oximetry Oxygen Delivery 10/19/23 13:29 10/19/23 13:49 10/19/23 14:39 Temperature 36.2 C L 36.4 C Pulse Rate 70 Respiratory Rate 21 H Blood Pressure 118/69 Pulse Oximetry 98 Oxygen Delivery Room Air 10/19/23 17:00 10/19/23 17:08 10/19/23 17:22 Temperature 36.4 C L 36.4 C L Pulse Rate 81 Respiratory Rate 20 Blood Pressure 113/64 Pulse Oximetry 98 Oxygen Delivery Room Air 10/19/23 20:00 10/19/23 21:30 10/20/23 01:50 Temperature 36.6 C 37.1 C Pulse Rate 92 84 Respiratory Rate 18 20 Blood Pressure 123/66 120/53 L Pulse Oximetry 99 97 Oxygen Delivery Room Air 10/20/23 06:15 10/20/23 08:00 Temperature 36.8 C 36.0 C L Pulse Rate 88 86 Respiratory Rate 16 16 Blood Pressure 129/65 105/49 L Pulse Oximetry 98 97 Oxygen Delivery Intake/Output Intake/Output: Intake & Output 10/17/23 10/18/23 10/19/23 10/20/23 23:59 23:59 23:59 23:59 Intake Total 592 490 Output Total 525 Balance 592 -35 Meds/Results Medications: Active Medications Generic Name Dose Route Start Last Admin Trade Name Freq PRN Reason Stop Dose Admin Acetaminophen 1,000 mg 10/19/23 11:37 Acetaminophen 500 Mg Tablet PO Q6H PRN Pain Rated 1-3 Aspirin 325 mg 10/19/23 11:37 10/20/23 08:46 Aspirin 325 Mg Enteric Tablet PO 325 mg Q12HR RUBEN Administration Atorvastatin Calcium 20 mg 10/19/23 21:00 10/19/23 20:10 Atorvastatin 20 Mg Tablet PO 20 mg QHS RUBEN Administration Diazepam 5 mg 10/19/23 11:37 Diazepam (*Crx) 5 Mg Tablet PO Q8H PRN Spasms Diphenhydramine HCl 25 mg 10/19/23 11:37 Diphenhydramine Hcl Inj 50 Mg/Ml Vial IV PUSH Q6H PRN Itching Famotidine 20 mg 10/19/23 11:37 10/20/23 10:48 Famotidine 20 Mg Tablet PO 20 mg Q12HR RUBEN Administration Ketorolac Tromethamine 15 mg 10/19/23 12:00 10/20/23 06:29 Ketorolac 15 Mg/Ml Vial (*Bkc) IV PUSH 10/20/23 12:01 15 mg Q6HR RUBEN Administration Lisinopril 20 mg 10/19/23 12:00 10/20/23 08:46 Lisinopril 20 Mg Tablet BY MOUTH 20 mg DAILY RUBEN Administration Naloxone HCl 0.1 mg 10/19/23 11:37 Naloxone Hcl 0.4 Mg/Ml Vial IV PUSH Q2M PRN Opiate Reversal Ondansetron HCl 4 mg 10/19/23 11:37 Ondansetron Inj 4 Mg/2 Ml Vial IV PUSH Q4H PRN Nausea And Vomiting Oxycodone/Acetaminophen 1 tablet 10/19/23 11:37 10/20/23 06:30 Oxycodone/Acetaminophen (*Crx) 5-325 Mg Tablet PO 1 tablet Q4H PRN Administration Pain Rated 4-6 Oxycodone/Acetaminophen 2 tablet 10/19/23 11:37 Oxycodone/Acetaminophen (*Crx) 5-325 Mg Tablet PO
[2023-10-20 12:00] VITALS: BP 103/54; PULSE 73; RESP 16; TEMP 35.9; O2SAT 95
--- NOTE | 2023-10-20 15:38 | PM.DS ---
DS: Admitting Diagnosis Discharge Date 10/20/23 Admitting Diagnosis RIGHT KNEE DJD DS: Discharge Diagnosis Discharge Diagnosis (1) Degenerative joint disease of knee: Qualifiers: Osteoarthritis type: primary Laterality: bilateral Qualified Code(s): M17.0 - Bilateral primary osteoarthritis of knee Code(s): M17.9 - Osteoarthritis of knee, unspecified Status: Acute DS: Summary Hospital Course Reason for hospitalization: RIGHT TKA Hospital Course: PATIENT WAS ADMITTED S/P TOTAL KNEE ARTHROPLASTY FOR POSTOPERATIVE MEDICAL MANAGEMENT, PAIN CONTROL AND MOBILIZATION WITH PHYSICAL AND OCCUPATIONAL THERAPY. THE PATIENT PROGRESSED WELL WITH PT/OT. LABS AND VITALS REMAINED STABLE AND PAIN WELL CONTROLLED. THE PATIENT HAS BEEN CLEARED TO BE DISCHARGED HOME. FOLLOW UP APPOINTMENT SCHEDULED. DISCHARGE INSTRUCTIONS DISCUSSED AT LENGTH WITH THE PATIENT. MEDICATIONS REVIEWED. Status at Discharge Cognitive/behavioral status at discharge: STABLE Time Spent with Patient Time attestation: Total time spent providing and/or coordinating discharge services: DS: Data Data Completed and Pending Labs on day of discharge: Labs from last 24 hours 10/20/23 06:10 WBC 10.4 H RBC 3.84 L Hgb 11.0 L Hct 34.1 L MCV 88.8 MCH 28.6 MCHC 32.3 RDW 13.8 Plt Count 202 MPV 10.7 H Immature Gran % (Auto) 0.4 Neut % (Auto) 67.2 Lymph % (Auto) 21.5 [place] % (Auto) 10.6 H Eos % (Auto) 0.2 Baso % (Auto) 0.1 L Lymph # (Auto) 2.24 [place] # (Auto) 1.1 H Eos # (Auto) 0.0 Baso # (Auto) 0.0 Abs Immat Gran (auto) 0.04 H Absolute Neuts (auto) 7.0 H Absolute Nucleated RBC 0.0 Nucleated RBC % 0.0 Sodium 138 Potassium 3.6 Chloride 106 Carbon Dioxide 27 Anion Gap 5 L BUN 21 H D Creatinine 1.10 Estim Creat Clear Calc 82 Estimated GFR > 60 Glucose 110 Calcium 9.0 Procedures/Treatments: R TKA Discharge Plan Discharge Patient Disposition: Home Health Service Discharge Instructions: Post Op Total Knee Replacement Instructions Dr. Pérez Frost [phone] Your dressing will be changed prior to your discharge. You will be sent home with one additional dressing to be changed on post op day 7 by the home health RN. Your rina will be removed on the 14th day after surgery and steri-strips will be placed. Please practice good hand hygiene and do not touch your incision in order to prevent infection. You may shower with your dressing but do not submerge in a bath tub. Do not drive or operate machinery until you are released by Dr. Frost. Do not walk without a walker for any reason until you are released by Dr. Frost. Continue to use your ice machine. Please use a towel or pillow case to protect your skin before applying your ice machine. Do NOT place a pillow under your knee. You may use a pillow from the calf down if needed. This will prevent a flexion contracture postoperatively. You may begin use of your CPM machine at home if you have been given one pre-operatively. DO NOT USE WHILE YOU ARE SLEEPING. Your first post op appointment was sent to you via mail preoperatively. If you have any questions or are unable to make your appointment, please contact our office for scheduling questions. Your medications have been sent to your pharmacy. You have been sent home with pain medication. Please tile picker an over the counter stool softener to prevent constipation due to narcotic use. Please keep this in mind during your postoperative recovery. If you are not experiencing regular bowel movements, please contact our office for further instruction. Please contact our office with any questions/concerns regarding your knee at [phone]. TAKE 2 ADULT STRENGTH ASPIRIN (325 MG) PER DAY FOR 3 WEEKS TO PREVENT BLOOD CLOTS Care Coordination: Patient to have [facility] for PT/OT eval and treat, and care home. They will contact you to scheduled their first visit; their phon
== END 2023-10-20 16:10 | disposition home health service (06) ==
LOC: ANHSURGERY 06:07 → ANH3MEDSUR 11:40
PROVIDERS: PCP Family Medicine; Visit Provider Orthopaedic Surgery
PROC: (CPT 27447; principal; 2023-10-19 07:30)
DX: M17.11 Unilateral primary osteoarthritis, right knee (principal); G89.18 Other acute postprocedural pain; I10 Essential (primary) hypertension; E78.2 Mixed hyperlipidemia; E66.9 Obesity, unspecified; Z68.36 Body mass index [BMI] 36.0-36.9, adult
CPT/HCPCS: 27447; 64447; 36415; 73560; 80048; 80307; 81001; 82040; 83036; 85025; 85610; 85730; 86850; 86900; 86901; 87641; 97110; 97116; 97161; 97165; 97530; 97535; A9270; C1713; C1776; J0171; J0690; J1100; J1170; J1885; J2250; J2270; J2371; J2704; J2795; J3010; J3370; J7120